=== PATIENT | male | born 1935 | race Caucasian/White ===

== ENCOUNTER → 2018-01-29 | Outpatient (CLI) | payer OTHER, BC ==
--- NOTE | ~2018-01-29 | SLE ---
[facility] [place] [address] POLYSOMNOGRAPHY STUDY Name: BRITTANY GORDON Room #: REG [facility]#: [id number] Admission: 01/29/18 Attend Phys: Lincoln Farrell MD Discharge: Date of : 31 Report #: [id number] THIS REPORT FOR: //name// CC: Lincoln Zamudio MD DATE OF SERVICE: 01/29/2018 SLEEP STUDY ATTENDING PHYSICIAN: Dr. Juancho Zamudio. The patient is 82-year-old who weighs 169 pounds and is 66 inches tall with a BMI of 27.3. The patient's Purdum score was 4. The patient underwent diagnostic sleep study at [facility]. During the night study, the patient spent 486 minutes in bed and slept for 301 minutes with a low sleep efficiency of 62%. Sleep latency was 26.7 minutes with a REM latency of 201 minutes. Overall, sleep architecture showed increased stage 1 and stage 2 sleep, absent slow wave, and normal REM sleep. During the night of the study, the patient had total of 80 apneas and 12 hypopneas. The patient had 77 obstructive and 3 mixed apneas. The patient's apnea-hypopnea index was 18 per hour with a REM index of 35 per hour and a supine index of 25 per hour. Review of nocturnal oximetry study revealed an average oxygen saturation of 95% with the lowest of 72%. 7.8 minutes were spent at an oxygen saturation of less than 90%. PLMS were seen at an index of 25 per hour and 2.8 per hour caused EEG arousals. EKG monitoring revealed an average heart rate of 59 beats per minute. No sustained arrhythmias were observed. Maximum heart rate 87 beats per minute during sleep. The patient did meet split the night criteria for CPAP initiation, but it was late in the night of study and there was not enough time to initiate CPAP. IMPRESSION: 1. Moderate sleep apnea-hypopnea syndrome with worsening during REM sleep. Total apnea-hypopnea index 18 per hour with a REM apnea-hypopnea index of 35.5 per hour. 2. Mild nocturnal hypoxia secondary to obstructive sleep apnea. 3. Moderate periodic limb movements during sleep without any significant EEG [facility] [address] [place] [address] POLYSOMNOGRAPHY STUDY Name: BRITTANY GORDON Room #: REG [facility].#: [id number] Admission: 01/29/18 Attend Phys: Lincoln Farrell MD Discharge: Date of : 31 Report #: [id number] arousals. RECOMMENDATIONS: 1. The patient would benefit from in-lab CPAP titration study. 2. Once optimal CPAP pressure is achieved, then follow up in 4-6 weeks to assess compliance with CPAP and to document clinical improvement. 3. Alternate treatment option would include use of an oral appliance as recommended by the dentist. 4. Weight loss is strongly advised. 5. Avoid [employer]CH[employer]ICIAN depressants. 6. Cautioned regarding driving until symptoms of sleep apnea resolve with the above recommendations. <ELECTRONICALLY SIGNED> By: Lincoln Farrell MD 01/31/18 [id number] Lincoln Farrell MD /nt
== END ==
LOC: SLEEPLAB 16:40
DX: G47.33 Obstructive sleep apnea (adult) (pediatric) (principal); G47.61 Periodic limb movement disorder; G47.10 Hypersomnia, unspecified; R09.02 Hypoxemia

== ENCOUNTER → 2018-02-11 | Outpatient (CLI) | payer OTHER, BC ==
--- NOTE | ~2018-02-11 | SLE ---
[facility] [place] [address] POLYSOMNOGRAPHY STUDY Name: GORDONBRITTANY D Room #: REG [facility]#: [id number] Admission: 02/11/18 Attend Phys: Lincoln Farrell MD Discharge: Date of : 31 Report #: [id number] THIS REPORT FOR: //name// CC: Lincoln Zamudio MD DATE OF SERVICE: 02/11/2018 ATTENDING PHYSICIAN: Dr. Juancho Zamudio. The patient is an 82-year-old who weighs 169 pounds and 66 inches tall. The patient returned to [facility] for CPAP titration study. During the night study, the patient spent 463 minutes in bed and slept for 344 minutes with a sleep efficiency of 74%. Sleep latency was 12.9 minutes with a REM latency of 68.4 minutes. Overall sleep architecture showed increased stage 1 and stage 2 sleep, absent N3 sleep and normal REM sleep. EKG monitoring revealed an average heart rate of 61 beats per minute with a maximum 85 beats per minute. Normal sinus rhythm with occasional PACs and PVCs seen. PLMS were seen at an index of 53 per hour and 4.5 per hour caused EEG arousals. The patient was started on CPAP at 5 cm water and titrated up to 10 cm of water. At the final pressure, the patient slept for 52.5 minutes. The patient had lateral REM sleep. The patient's AHI was reduced to 0 per hour and oxygen saturation remained above 94%. Even at lower pressures the patient did very well and AHI remained less than 1 per hour. IMPRESSION/ RECOMMENDATIONS: 1. CPAP at 10 cm water completely eliminated the patient's sleep apnea and should be used on a nightly basis. 2. Severe periodic limb movements in sleep. The patient should be further evaluated for symptoms of restless legs during the day. 3. Weight loss is advised. 4. Avoid [employer]PER depressants. 5. Cautioned regarding driving until symptoms of sleep apnea have resolved with the use of CPAP. <ELECTRONICALLY SIGNED> By: Lincoln Farrell MD 02/15/18 [id number] Lincoln Farrell MD /nt
== END ==
LOC: SLEEPLAB 20:49
DX: G47.33 Obstructive sleep apnea (adult) (pediatric) (principal); G47.10 Hypersomnia, unspecified

== ENCOUNTER → 2019-08-23 | Outpatient (CLI) | payer OTHER, BC | LOC: SJCVCIMAG 08:07 | DX: I49.3 Ventricular premature depolarization (principal); I45.10 Unspecified right bundle-branch block; R94.31 Abnormal electrocardiogram [ECG] [EKG]; I10 Essential (primary) hypertension; E78.5 Hyperlipidemia, unspecified; Z79.899 Other long term (current) drug therapy; Z82.49 Family history of ischemic heart disease and other diseases of the circulatory system ==

== ENCOUNTER → 2020-05-09 | Outpatient (CLI) | payer OTHER, BC | LOC: SJCVC 14:25 | PROVIDERS: ATTEND Internal Medicine Cardiovascular Disease | DX: R94.31 Abnormal electrocardiogram [ECG] [EKG] (principal); I45.10 Unspecified right bundle-branch block; G47.33 Obstructive sleep apnea (adult) (pediatric); I10 Essential (primary) hypertension; E78.00 Pure hypercholesterolemia, unspecified; M19.90 Unspecified osteoarthritis, unspecified site; Z86.16 Personal history of COVID-19; Z98.890 Other specified postprocedural states; Z79.82 Long term (current) use of aspirin; Z79.899 Other long term (current) drug therapy; Z82.49 Family history of ischemic heart disease and other diseases of the circulatory system ==

== ENCOUNTER → 2021-01-22 | Outpatient (CLI) | payer OTHER, BC | LOC: SJCVCIMAG 07:12 | PROVIDERS: ATTEND Internal Medicine Cardiovascular Disease | DX: I10 Essential (primary) hypertension (principal); E78.00 Pure hypercholesterolemia, unspecified; Z86.16 Personal history of COVID-19; Z72.89 Other problems related to lifestyle; Z79.82 Long term (current) use of aspirin; Z79.899 Other long term (current) drug therapy ==